=== PATIENT | male | born 1980 | race Caucasian/White ===

== ENCOUNTER → 2016-07-08 | Outpatient (CLI) | payer OTHER ==
[~2016-07-08] MED LIST: CETI10TA84 PO; GADAVIST IV PRN; IBUP-1451 PO; MULT20CH PO
--- NOTE | 2016-07-08 19:34 | DIAGNOSTIC IMAGING REPORT ---
MRI OF THE BRAIN COMBO; MRI OF THE ORBITS COMBO CLINICAL HISTORY: Optic nerve edema. Visual changes on the right. COMPARISON STUDY: No priors. TECHNIQUE: MRI of the brain was performed utilizing various T1 and T2-weighted sequences in the axial, sagittal, and coronal planes. Contrast-enhanced sequences were acquired following the administration of 7 cc of Gadavist. Additional high-resolution imaging of the orbits is performed both pre and postcontrast in the axial and coronal planes. FINDINGS: Brain parenchyma: The brain parenchyma is normal in appearance. There is no hemorrhage or mass effect. There is no restricted diffusion to suggest acute ischemia. No enhancing mass lesion is identified on the postcontrast images. Hurley-white matter differentiation is preserved. No extra-axial fluid collection is seen. The cerebellar tonsils are normal in configuration. Ventricles, sulci, and cisterns: Normal in configuration. Pituitary and sella: Unremarkable. Intracranial vasculature: Normal flow voids are maintained at the skull base. Orbits: The bony orbits are grossly intact. The orbits contents are normal in appearance. There is no evidence of intra or extraconal mass. The extraocular muscles are normal and symmetric. There is no abnormal enhancement seen along the course of the optic nerves, which appear normal and symmetric. The optic chiasm is normal as visualized. Sinuses and mastoids: There are large mastoid effusions. The paranasal sinuses are clear. Calvarium: Unremarkable. Cervical cord: Partially visualized cervical spinal cord is normal in morphology and signal intensity. IMPRESSION: 1. Unremarkable contrast-enhanced MRI of the brain. 2. Large mastoid effusions. 3. Unremarkable contrast-enhanced MRI of the orbits. Electronically signed by: Prasad Fritz M.D. 07/08/2016 7:33 PM Dictated Date/Time: 07/08/2016 7:27 PM
== END | disposition home or self-care (01) ==
LOC: C.MRI 16:39
PROVIDERS: ATTEND Ophthalmology
DX: H47.10 Unspecified papilledema (principal)

== ENCOUNTER 2016-10-24 09:23 | Emergency (ER) | payer OTHER ==
[~2016-10-24] VITALS: Ht 177.8 cm; Wt 76.0 kg
[~2016-10-24 09:23] MED LIST changes: -CETI10TA84 PO; -GADAVIST IV PRN; -IBUP-1451 PO
[2016-10-24 09:35] VITALS: TEMP 36.6; Ht 177.8 cm; Wt 76.0 kg
[2016-10-24 09:59] VITALS: O2SAT 97
[2016-10-24] MEDS ORDERED: SODIUM CHLORIDE 0.9% 1000ML 1,000 ML IV STA (10:00)
[2016-10-24 10:20] LABS: BASO % 0.3 %; BASO ABS # 0.02 K/uL (0-0.2); COMPLETE YES; HEMATOCRIT 42.9 % (42-52); IG% 0.3 %; LYMPH % 15.1 %; LYMPH ABS # 1.04 K/uL (1.2-3.4); MEAN CELL VOLUME 92.1 fL (80-100); MEAN CORPUSCULAR HEMOGLOBIN 33.3 pg (25-34); MEAN CORPUSCULAR HGB CONC 36.1 g/dl (32-36); MEAN PLATELET VOLUME 10.3 fL (7.4-10.4); MONO % 10.6 %; NEUT % 71.7 %; PLATELET COUNT 179 K/uL (130-400); RED BLOOD COUNT 4.66 M/uL (4.7-6.1); WHITE BLOOD COUNT 6.89 K/uL (4.8-10.8)
[2016-10-24] MEDS ORDERED: CETI10TA84 PO (10:30)
[2016-10-24 10:38] LABS: BLOOD UREA NITROGEN 10 mg/dl (7-18); BUN/CREATININE RATIO 12.6 (10-20); CALCIUM 8.8 mg/dl (8.5-10.1); CARBON DIOXIDE 29 mmol/L (21-32); CHLORIDE 105 mmol/L (98-107); CREATININE 0.77 mg/dl (0.60-1.40); GLUCOSE 95 mg/dl (70-99); MAGNESIUM 2.1 mg/dl (1.8-2.4); POTASSIUM 4.1 mmol/L (3.5-5.1); SODIUM 139 mmol/L (136-145)
--- NOTE | 2016-10-24 10:38 | DIAGNOSTIC IMAGING REPORT ---
CHEST ONE VIEW PORTABLE CLINICAL HISTORY: Atypical chest pain. Hypertension. COMPARISON STUDY: No previous studies for comparison. FINDINGS: The cardiac and mediastinal contours are normal. There is no evidence of focal pulmonary consolidation. There is no evidence of failure. No pleural effusions are visualized.[ IMPRESSION: No active disease in the chest. Electronically signed by: Erwin Baxter M.D. 10/24/2016 10:36 AM Dictated Date/Time: 10/24/2016 10:36 AM
[2016-10-24 10:43] LABS: PHOSPHORUS 3.6 mg/dl (2.5-4.9)
--- NOTE | 2016-10-24 10:57 | EMERGENCY ROOM VISIT NOTE ---
History Report prepared by Kirk: Annette Razo Under the Supervision of: Dr. Alex Cortez M.D. First contact with patient: 09:52 Chief Complaint: HYPERTENSION Stated Complaint: HYPERTENSION, DIZZY, LEFT ARM PAIN, SHOULD TO ELBO History of Present Illness The patient is a 36 year old male who presents to the Emergency Room with complaints of an episode of high blood pressure starting 2 weeks ago. He notes his blood pressure usually runs 150/90. The patient states that he has been monitoring his blood pressure since they found it during a physical, but isn't high enough to be on medications. He states that he has left arm pain, chest pain, and dizziness. The patient states that he only had chest pain for 15 minutes yesterday that felt like a pressure. He states that the arm pain and dizziness have been around for 2 weeks. He notes that the arm pain radiates into his shoulder at night and makes it difficult to sleep. He currently rates his pain as a 5/10 in severity. The patient states that he came to the ED today because he called his PCP to move up his appointment, but they suggested he come in. He denies ever having the chest pain before, recent injuries, fevers, chills, congestion, diarrhea, abdominal pain, nausea, and vomiting. The patient notes a family history of heart disease and pancreatic cancer. He reports that he had bronchitis and an ear infection that he finished up antibiotic for a week ago. He notes that he has chronic back pain and that he stopped taking his Percocet a month and a half ago. Source of History: patient Onset: 2 weeks ago Position: other (global) Symptom Intensity: 5/10 Quality: other (global) Timing: other (episode) Associated Symptoms: + chest pain, + back pain, No fevers, No chills, No nausea, No vomiting, No abdominal pain, No diarrhea Note: The patient complains of left arm pain and dizziness. The patient denies chest pain before, recent injuries, and congestion. Review of Systems See HPI for pertinent positives and negatives. A total of ten systems were reviewed and were otherwise negative. Past Medical & Surgical Medical Problems: (1) HTN (hypertension) (2) Hx right foot surgery Family History Cancer Diabetes mellitus Heart disease Hypertension Social History Smoking Status: Never Smoker Alcohol Use: occasionally Drug Use: none Marital Status: single Housing Status: lives alone Occupation Status: employed Current/Historical Medications Scheduled Cetirizine (Zyrtec), 10 MG PO DAILY Scheduled PRN Ibuprofen Tab (Motrin), 800 MG PO Q8H PRN for Pain Allergies Coded Allergies: No Known Allergies (Unverified , 10/24/16) Physical Exam Vital Signs Date Time Temp Pulse Resp B/P (MAP) Pulse Ox O2 Delivery O2 Flow Rate FiO2 10/24/16 15:50 86 22 120/77 97 Room Air 10/24/16 13:53 79 18 137/94 95 Room Air 10/24/16 13:16 84 10/24/16 12:39 79 18 139/96 96 Room Air 10/24/16 12:10 75 18 128/85 97 Room Air 10/24/16 11:02 74 18 129/84 97 Room Air 10/24/16 09:59 97 Room Air 10/24/16 09:58 81 18 153/89 95 Room Air 10/24/16 09:49 88 10/24/16 09:35 36.6 81 18 165/98 96 Room Air Physical Exam GENERAL: Awake, alert, well-appearing, in no distress HENT: Normocephalic, atraumatic. Dry mucus membranes. EYES: Normal conjunctiva. Sclera non-icteric. NECK: Supple. No nuchal rigidity. FROM. No JVD. RESPIRATORY: Clear to auscultation. CARDIAC: Regular rate, normal rhythm. Extremities warm and well perfused. Pulses equal. ABDOMEN: Soft, non-distended. No tenderness to palpation. No rebound or guarding. No masses. RECTAL: Deferred. MUSCULOSKELETAL: Chest examination reveals no tenderness. The back is symmetrical on inspection without obvious abnormality. There is no CVA tenderness to palpation. No joint edema. Mild reproducible arm pain on radial aspect of left forearm. LOWER EXTREMITIES: Calves are equal size bilaterally and non-tender. No edema. No discoloration. NEURO: Normal sensorium. No sensory or motor deficits noted. SKIN: No rash or jaundice noted. Medical Decision & Procedures ER Provider Diagnostic Interpretation: Radiology results as stated below per my review and radiologist interpretation: CHEST ONE VIEW PORTABLE CLINICAL HISTORY: Atypical chest pain. Hypertension. COMPARISON STUDY: No previous studies for comparison. FINDINGS: The cardiac and mediastinal contours are normal. There is no evidence of focal pulmonary consolidation. There is no evidence of failure. No pleural effusions are visualized.[ IMPRESSION: No active disease in the chest. Electronically signed by: Erwin Baxter M.D. 10/24/2016 10:36 AM Dictated Date/Time: 10/24/2016 10:36 AM Laboratory Results 10/24/16 09:56 Red Blood Count 4.66, Mean Corpuscular Volume 92.1, Mean Corpuscular Hemoglobin 33.3, Mean Corpuscular Hemoglobin Concent 36.1, Mean Platelet Volume 10.3, Neutrophils (%) (Auto) 71.7, Lymphocytes (%) (Auto) 15.1, Monocytes (%) (Auto) 10.6, Eosinophils (%) (Auto) 2.0, Basophils (%) (Auto) 0.3, Neutrophils # (Auto ) 4.94, Lymphocytes # (Auto) 1.04, Monocytes # (Auto) 0.73, Eosinophils # (Auto ) 0.14, Basophils # (Auto) 0.02 10/24/16 09:56 Test 10/24/16 09:56 White Blood Count 6.89 K/uL (4.8-10.8) Red Blood Count 4.66 M/uL (4.7-6.1) Hemoglobin 15.5 g/dL (14.0-18.0) Hematocrit 42.9 % (42-52) Mean Corpuscular Volume 92.1 fL (80-100) Mean Corpuscular Hemoglobin 33.3 pg (25-34) Mean Corpuscular Hemoglobin Concent 36.1 g/dl (32-36) Platelet Count 179 K/uL (130-400) Mean Platelet Volume 10.3 fL (7.4-10.4) Neutrophils (%) (Auto) 71.7 % Lymphocytes (%) (Auto) 15.1 % Monocytes (%) (Auto) 10.6 % Eosinophils (%) (Auto) 2.0 % Basophils (%) (Auto) 0.3 % Neutrophils # (Auto) 4.94 K/uL (1.4-6.5) Lymphocytes # (Auto) 1.04 K/uL (1.2-3.4) Monocytes # (Auto) 0.73 K/uL (0.11-0.59) Eosinophils # (Auto) 0.14 K/uL (0-0.5) Basophils # (Auto) 0.02 K/uL (0-0.2) RDW Standard Deviation 42.4 fL (36.4-46.3) RDW Coefficient of Variation 12.7 % (11.5-14.5) Immature Granulocyte % (Auto) 0.3 % Immature Granulocyte # (Auto) 0.02 K/uL (0.00-0.02) Anion Gap 5.0 mmol/L (3-11) Est Creatinine Clear Calc Drug Dose 134.3 ml/min Estimated GFR () 133.4 Estimated GFR (Non- 115.1 BUN/Creatinine Ratio 12.6 (10-20) Calcium Level 8.8 mg/dl (8.5-10.1) Phosphorus Level 3.6 mg/dl (2.5-4.9) Magnesium Level 2.1 mg/dl (1.8-2.4) Troponin I < 0.015 ng/ml (0-0.045) Laboratory results reviewed by me Medications Administered Medications (Trade) Dose Ordered Sig/Nellie Route Start Time Stop Time Status Last Admin Dose Admin Sodium Chloride 1,000 ml @ 999 mls/hr Q1H1M STAT IV 10/24/16 10:00 10/24/16 11:00 DC 10/24/16 10:28 999 MLS/HR Ketorolac Tromethamine (Toradol Inj) 30 mg NOW STAT IV 10/24/16 12:13 10/24/16 12:14 DC 10/24/16 12:38 30 MG Acetaminophen (Tylenol Tab) 1,000 mg NOW STAT PO 10/24/16 15:43 10/24/16 15:44 DC 10/24/16 15:49 1,000 MG Procedure BEDSIDE ECHO: Showed no evidence of a pericardial effusion. Has grossly normal RV/LV size and function. ECG Indication: chest pain Rate (beats per minute): 77 Rhythm: normal sinus Findings: other (normal axis, early repolarization with positive Spotich sign) ED Course 0957: The patient was evaluated in room B10. A complete history and physical exam was performed. 1000: Ordered NSS 1000 ml @ 999 mls/hr IV. 1213: Ordered Toradol Inj 30 mg IV. 1222: I reevaluated the patient and he states the pain is worse when laying flat. He notes that he did have URI symptoms recently. 1543: Ordered Tylenol Tab 1000 mg PO. 1550: I reevaluated the patient. Discussed results and discharge instructions: He verbalized understanding and agreement. The patient is ready for discharge. Medical Decision I reviewed the patient's past medical history, medications, and the nursing notes as described above. Differential diagnoses include musculoskeletal strain, costochondritis, pneumonia, bronchitis, pericarditis. Patient is a 36-year-old gentleman who presents to the emergency department with the report of several weeks of left arm pain has been constant, headedness over the past couple of days, then chest pain episode that occurred last night per history of present illness. Arrival of the patient is well-appearing in no acute distress. During patient's has a history of father with [place] in his 50s, troponin sent and was negative. Labs otherwise unremarkable including normal electrolytes. Patient does appear clinically dry and was given IV fluid hydration. EKG showing anterior lateral early repolarization with downsloping TP segments that could be consistent with Spotick sign possibly reflecting an early pericarditis. Further discussion with patient ?of worsening chest pain when lying flat. Also reports recently being treated for URI symptoms. Bedside echo negative for pericardial effusion and otherwise grossly normal RV/ LV function and size. CRP ordered to help assist in clarification of diagnosis and is pending. Otherwise patient instructed to take ibuprofen. Regarding the patient's left arm pain, sx most consistent with a history of skeletal strain, nerve impingement with pain is reproducible on palpation forearm on the radial aspect. Findings and plan for pcp and cards follow-up d/w patient. Patient agreeable and d/c'd per discharge instructions. Impression Primary Impression: Chest pain Scribe Attestation The scribe's documentation has been prepared under my direction and personally reviewed by me in its entirety. I confirm that the note above accurately reflects all work, treatment, procedures, and medical decision making performed by me. Departure Information Dispostion Home / Self-Care Prescriptions Ibuprofen Tab (MOTRIN) 800 Mg Tab 800 MG PO Q8H Y for Pain for 14 Days, #42 TAB Prov: Alex Cortez M.D. 10/24/16 Referrals Ervin Marquez M.D. (MEDICAL) (PCP) Benjamín Willams MD Forms HOME CARE DOCUMENTATION FORM, IMPORTANT VISIT INFORMATION, WORK / SCHOOL INSTRUCTIONS Patient Instructions Chest Pain - [facility], ED Chest Pain Pericarditis, My [facility] Additional Instructions Please follow up with your primary care physician in the next 1-3 days as well as with cardiology. Your EKG and symptoms may be consistent with pericarditis. Otherwise, your exam and lab results did not show signs of an emergent condition at this time. Take ibuprofen 3 times daily as prescribed. Return to the emergency department for worsening symptoms as described in the accompanying instructions.
[2016-10-24] MEDS ORDERED: KETOROLAC TROMETHAMINE 30 MG/ML VIAL IV STA (12:13)
[2016-10-24] MEDS ORDERED: ACETAMINOPHEN 500 MG TAB PO STA (15:43)
[2016-10-24 15:50] VITALS: BP 120/77; PULSE 86; O2SAT 97
[2016-10-24] MEDS ORDERED: IBUP-1451 PO (15:50)
[2016-10-28 11:38] LABS: C-REACTIVE PROT HIGHSEN 0.7 MG/L
== END 2016-10-24 16:19 | disposition home or self-care (01) ==
LOC: C.EDB 09:26
DX: R07.9 Chest pain, unspecified (principal); I10 Essential (primary) hypertension; M54.9 Dorsalgia, unspecified; G89.29 Other chronic pain; Z80.0 Family history of malignant neoplasm of digestive organs; Z83.3 Family history of diabetes mellitus; Z82.49 Family history of ischemic heart disease and other diseases of the circulatory system

== ENCOUNTER → 2016-11-06 | Outpatient (CLI) | payer OTHER ==
[~2016-11-06] MED LIST changes: +CETI10TA84 PO; +IBUP-1451 PO; -MULT20CH PO
[2016-11-06 10:04] LABS: CHOLESTEROL/HDL RATIO 3.2
== END | disposition home or self-care (01) ==
LOC: C.LAB 07:08
PROVIDERS: ATTEND Family Medicine
DX: Z13.6 Encounter for screening for cardiovascular disorders (principal)